=== PATIENT | female | born 1990 ===

== ENCOUNTER → 2023-02-05 15:47 | Outpatient (CLI) | payer BC, SELFPAY ==
--- NOTE | ~2023-02-05 | US_ITS ---
EXAMINATION: US pelvic complete w TV DATE: 02/05/2023 16:12 INDICATION: Pelvic and perineal pain. TECHNIQUE: Multiple transabdominal and transvaginal sonographic images of the pelvis were obtained. COMPARISON: None. FINDINGS: TRANSABDOMINAL ULTRASOUND: The uterus measures 8.4 x 5.0 x 5.6 cm. There is no free fluid in the pelvis. TRANSVAGINAL ULTRASOUND: The endometrial complex measures 10 mm in thickness. The right ovary measures 3.0 x 2.7 x 3.6 cm. The left ovary measures 3.1 x 1.7 x 1.9 cm. There is normal vascular flow in the ovaries. IMPRESSION: 1. Normal pelvis. Reviewed, dictated and finalized at location E. IMPRESSION: 1. Normal pelvis.
== END ==
DX: R10.2 Pelvic and perineal pain (principal); N93.0 Postcoital and contact bleeding
CPT/HCPCS: 76830; 76856

== ENCOUNTER → 2023-07-29 15:07 | Outpatient (CLI) | payer BC, SELFPAY ==
--- NOTE | ~2023-07-29 | US_ITS ---
Pelvic ultrasound. Clinical History: Pelvic pain Technique: Realtime transabdominal and transvaginal scanning of the pelvis was performed. Color flow Doppler and Doppler spectral analysis were performed. Findings: The uterus is anteverted. The endometrial stripe has a thickness of 14 mm. No focal mass i s identified. The right ovary measures 2.7 x 2.2 x 2.6 cm. No significant right ovarian or adnexal mass is seen. The left ovary measures 4.3 x 2.7 x 3.6 cm. No significant left ovarian or adnexal mass is seen. There is no evidence of free fluid in the cul de sac. Impression: Unremarkable pelvic ultrasound. Reviewed, dictated and finalized at location . UAGE THERAPIST Impression: Unremarkable pelvic ultrasound.
== END ==
DX: R10.2 Pelvic and perineal pain (principal)
CPT/HCPCS: 76830; 76856